=== PATIENT | female | born 1970 | race Caucasian/White ===

== ENCOUNTER → 2017-05-25 | Outpatient (CLI) | payer OTHER ==
[~2017-05-25] MED LIST: LEVO175T3 PO; TOPI25TA99 PO; TOPI50TA16 PO
[2017-05-25 18:45] LABS: URINE APPEARANCE CLEAR (CLEAR); URINE BILIRUBIN NEG (NEG); URINE COLOR YELLOW; URINE NITRITE NEG (NEG); URINE SPECIFIC GRAVITY 1.021 (1.000-1.030); UROBILINOGEN NEG (NEG)
[2017-05-25 18:49] LABS: MANUAL MICROSCOPIC REQUIRED? NO; REVIEW REQ? NO
== END | disposition home or self-care (01) ==
LOC: C.LABSPEC 17:39
PROVIDERS: ATTEND Obstetrics & Gynecology
DX: R10.2 Pelvic and perineal pain (principal); R10.84 Generalized abdominal pain

== ENCOUNTER 2017-11-29 07:38 | Emergency (ER) | payer OTHER ==
[~2017-11-29] VITALS: Ht 162.6 cm; Wt 80.7 kg
[2017-11-29 07:41] VITALS: TEMP 36.7; Ht 162.6 cm; Wt 80.7 kg
[2017-11-29] MEDS ORDERED: LIDO/EPINEPHRINE/SOD BICARB 20 ML VIAL INFIL ONE (08:06)
[2017-11-29] MEDS ORDERED: LIDOCAINE/EPINEPHRINE 1% 20 ML VIAL INFIL STA (08:06)
[2017-11-29] MEDS ORDERED: TOPI50TA25 PO (08:08)
--- NOTE | 2017-11-29 09:15 | EMERGENCY ROOM VISIT NOTE ---
ED Visit Note First contact with patient: 07:50 CHIEF COMPLAINT: Left upper lip foreign body HISTORY OF PRESENT ILLNESS: This 47-year-old female patient presents to the emergency department approximately 1 hour after noticing her lip-ring get lost within her lip while eating a ham sandwich. The patient states she bit into the sandwich, and felt the sandwich snag the piercing. She states she noticed the front of the piercing fall into the skin, and believes the back of the piercing went into the skin as well. She describes the ring as a small, dime instead with a round back. The patient's tetanus vaccination is up-to-date. The patient has been trying to remove the stud, but has been unsuccessful. The bleeding has stopped. Denies weakness or numbness of the lip. The patient rates the pain as minimal and 0/10. The patient denies any other injuries. None REVIEW OF SYSTEMS: A 6 system review of systems was completed with positives and pertinent negatives listed in the HPI. ALLERGIES: None MEDICATIONS: Topamax, Synthroid PMH: Hypothyroidism, migraines SOCIAL HISTORY: The patient lives locally with family. She denies drug, alcohol , tobacco use. This is a 47-year-old white female PHYSICAL EXAM: Vital Signs: Reviewed Nurse's notes, vital signs stable. GENERAL : This is a 47-year-old white female, in no acute distress, well-developed, well -nourished. SKIN: There is a 0.5 cm long laceration on the anterior aspect of the upper lip extending through to the outer skin. On palpation, there is a foreign-body like lesion noted within the piercing. There is no active bleeding. No deep structures such as tendons, bones, or significant blood vessels are seen in the base of the wound. Normal strength and movement of the lip. EMERGENCY DEPARTMENT COURSE: I examined the patient. Verbal consent was obtained to perform the procedure. Using sterile technique the wound was cleansed with Betadine. The area was sterilely draped. 1 ml of 1% buffered lidocaine with epinephrine was used to anesthetize the laceration within the mouth. The laceration was extended with a #11 scalpel to approximately 1 cm. The wound was explored with forceps. Possible foreign body noted, but unable to be retrieved. At this time, I re-palpated the wound and did not note a foreign body. X-ray of the face was performed to rule out foreign body. This was reviewed by myself and radiologist and was negative. Discussed x-ray results with the patient at bedside. The wound was flushed with sterile saline. The intraoral laceration was repaired using 2 simple interrupted 4-0 Vicryl sutures with the wound edges being well approximated. The patient tolerated the procedure well. Hemostasis was achieved. I suspect the foreign body sensation was actually scar tissue located within the hole of the piercing. On examination and attempts to remove this, the scar tissue was broken up, therefore providing relief of the foreign body sensation. I discussed with the patient that I suspect she either swallowed the jewelry or it could be in the sandwich or have fallen out. I did offer to perform an x- ray to look for the foreign body in the abdomen, but patient declines. I discussed with her that she should monitor for any blood in her stools or significant abdominal pain. I suspect the jewelry will pass without incident if she did truly swallow it. The patient was discharged home in good condition. I attest that I have personally reviewed the patient's current medication list. Patient was found to have normal blood pressure on screening and does not require follow-up. Differential diagnosis includes Laceration, retained foreign body in skin, foreign body ingested, infection, and others DIAGNOSIS: laceration of the oral cavity without foreign body Current/Historical Medications Scheduled Levothyroxine Sodium (Levothyroxine Sodium), 175 MCG PO QAM Topiramate (Topamax), 150 MG PO QAM Topiramate (Topiramate), 150 MG PO HS Allergies Coded Allergies: No Known Allergies (Verified , 11/29/17) Vital Signs Date Time Temp Pulse Resp B/P (MAP) Pulse Ox O2 Delivery O2 Flow Rate FiO2 11/29/17 09:27 85 18 131/94 98 Room Air 11/29/17 07:41 36.7 85 18 132/87 98 Room Air Departure Information Impression Primary Impression: Laceration of oral cavity without foreign body Dispostion Home / Self-Care Condition GOOD Referrals No Doctor, Assigned (PCP) Patient Instructions ED Laceration Mouth, My [facility] Additional Instructions You were seen in the ED today for a possible foreign body in your lip. As discussed, I suspect the sensation/"Foreign body" we were feeling was actually scar tissue within the lip related to the piercing. No FB noted on palpation or X-ray. You have received 2 sutures on your inner upper lip. These sutures are dissolvable and WILL NOT need to be removed by a health care provider. Proper wound care is essential for adequate wound healing and infection prevention. You can and clean the wound with salt water mouth rinses. Do not scour over the wound, pat dry with a towel. Do not submerse the wound until the sutures have dissolved. You can use an antibiotic ointment with a dressing over the wound for the next 3-4 days on the outer lip. After this time you may leave the wound dry and open to the air. If crust develops over the wound you can use a Q-tip to apply a 1:1 peroxide:water solution to clean the wound. Look for signs of infection of the wound including: increased pain, swelling, foul discharge, streaking, or increased temperature. If any of these are noticed you should return to the Emergency Department for further assessment and treatment. As with any laceration you may have received nerve damage to the surrounding tissues. This damage may or may not be permanent. You should keep the area covered with sunscreen for the first 6 months to 1 year when at risk for exposure to help minimize scarring. You can also use scar reducing creams or Vitamin E oil to help minimize scarring. For pain control, you can use the following [id number]-hgt-[id number] medicines (if >12 yo): Ibuprofen(Motrin, Advil) may be used for fever or pain. Use 600mg every six hours as needed. Take with food. Avoid using more than 2400mg in a 24 hour period. Do not use 2400mg per day for more than three consecutive days without physician direction. Prolonged inappropriate use can lead to stomach upset or ulcers. (AND/OR) Acetaminophen(Tylenol) may be used for fever or pain. Use 1000mg every six hours as needed. Avoid using more than 3000mg in a 24 hour period. Return to the emergency department if your symptoms worsen despite treatment course outlined above. Problem Qualifiers Primary Impression: Laceration of oral cavity without foreign body Encounter type: initial encounter Qualified Codes: S01.512A - Laceration without foreign body of oral cavity, initial encounter
--- NOTE | 2017-11-29 09:24 | DIAGNOSTIC IMAGING REPORT ---
FACIAL BONES 3 VIEWS CLINICAL HISTORY: The patient lost a lip piercing. FINDINGS: 3 views of the facial bones are obtained. There is no radiographic evidence of facial bone fracture. The bony orbits appear intact. The paranasal sinuses are clear as visualized. A right supraorbital piercing is noted. No lip piercing is seen. The mastoid air cells appear pneumatized. The visualized calvarium appears intact. IMPRESSION: 1. The right supraorbital piercing is noted. 2. No lip piercing is seen. 3. There is no radiographic evidence of facial bone fracture. Electronically signed by: Fredi Reyes M.D. 11/29/2017 9:23 AM Dictated Date/Time: 11/29/2017 9:21 AM
[2017-11-29 09:27] VITALS: BP 131/94; PULSE 85; O2SAT 98
== END 2017-11-29 09:29 | disposition home or self-care (01) ==
LOC: C.EDB 07:40 → C.EDA 09:29
DX: S01.512A Laceration without foreign body of oral cavity, initial encounter (principal); W26.8XXA Contact with other sharp object(s), not elsewhere classified, initial encounter; E03.9 Hypothyroidism, unspecified

== ENCOUNTER → 2018-04-23 | Outpatient (CLI) | payer OTHER ==
[~2018-04-23] MED LIST changes: +ACET-1256 PO; -TOPI25TA99 PO; +TOPI50TA25 PO
--- NOTE | 2018-04-26 15:42 | MAMMOGRAPHY REPORT ---
BILATERAL DIGITAL SCREENING MAMMOGRAM TOMOSYNTHESIS WITH CAD: 04/23/2018 CLINICAL HISTORY: Routine screening. The patient has no current complaints. TECHNIQUE: The study was acquired using full field digital technology and interpreted from soft copy. Breast tomosynthesis in addition to standard 2D mammography was performed. Current study was also ev aluated with a Computer Aided Detection (CAD) system. COMPARISON: Comparison is made to exams dated: 12/31/2012 ultrasound and 12/[facility]. BREAST COMPOSITION: There are scattered areas of fibroglandular density in both breasts. FINDINGS: No suspicious masses, calcifications, or areas of architectural distortion are noted in either breast . There has been no significant interval change compared to prior exams. Asymmetry in the left super ior breast middle depth on the MLO view has the appearance of normal fibroglandular tissue on the marleen osynthesis images. IMPRESSION: ACR BI-RADS CATEGORY 2: BENIGN There is no mammographic evidence of malignancy. A 1 year screening mammogram is recommended.( 019) The patient will receive written notification of the results. Some breast cancers are not detected with mammography. A negative mammographic report should not ha y biopsy if a clinically suggestive mass is present. Antonia Pérez M.D. ah/:04/23/2018 15:48:53 Charge Entry: RT Estella(Emigdio)(M), [facility] letter sent: Normal 1/2 BI-RADS Code: ACR BI-RADS Category 2: Benign
== END | disposition home or self-care (01) ==
LOC: C.MAMM 13:59
PROVIDERS: ATTEND Nurse Practitioner
DX: Z12.31 Encounter for screening mammogram for malignant neoplasm of breast (principal)

== ENCOUNTER 2022-09-19 12:16 | Observation (INO) ==
[2022-09-19] MEDS ORDERED: OPTIRAY 320 500ml IV ONE (12:22)
[2022-09-19] MEDS ORDERED: LABETALOL HCL IV 5 MG/ML 20ML IV STA (12:37)
[2022-09-19] MEDS ORDERED: LABETALOL HCL IV 5 MG/ML 20ML IV ONE (12:38)
--- NOTE | 2022-09-19 12:41 | Emergency Department Note ---
Impression & Plan Stroke-like symptoms, Chest pain, Headache, Syncope ED Provider Note NAME: AGUEDA ERICKSON AGE: 51 SEX: F : 1970 ARRIVES VIA: Ambulance INFORMANT: Patient, EMS, the patient's [facility] ED PROVIDER(S): Mango Hall DO CHIEF COMPLAINT: Strokelike symptoms HPI: The patient is a 51-year-old female who presented to the emergency department for an evaluation after having strokelike symptoms. The patient had a syncopal episode at approximately 10:45 AM. She states that after the syncopal episode she was developing chest pain. She states that she has had a history of chest pain before this is not new for her. She states that she has no chest pain at this time. She denies having any shortness of breath. She states that when she had her syncopal episode she does not think that she struck her head. At approximately 1145 she started to develop dysarthria. She also has a headache that is behind her right eye. She also complains of nausea but no vomiting. She has no history of TIA. She has no history of black or bloody bowel moods. The patient's family called 911 at 1145 when she developed the neurologic symptoms. She has a history of A. fib. She does not take any blood thinners. She states that she is having difficulty ambulating and reportedly she needed help getting onto the ambulance gurney. ROS: See above HPI for pertinent positives & negatives. A total of 10 systems reviewed and were otherwise negative. PAST MEDICAL HISTORY: See Below PAST SURGICAL HISTORY: See Below FAMILY HISTORY: See Below SOCIAL HISTORY: See Below HOME MEDICATIONS: See Below ALLERGIES: See Below VITALS: See Below PHYSICAL EXAMINATION: GENERAL: The patient is awake and alert. The patient is somewhat anxious appearing. EYES: The conjunctivae are clear. The pupils are round and reactive. EARS, NOSE, MOUTH AND THROAT: The nose is without any evidence of any deformity. Mucous membranes are moist. Tongue is midline. NECK: The neck is nontender and supple. RESPIRATORY: Normal respiratory effort is noted there is no evidence of wheezing rhonchi or rales CARDIOVASCULAR: Regular rate and rhythm noted there no murmurs rubs or gallops normal S1 normal S2. GASTROINTESTINAL: The abdomen is soft. Abdomen is nontender. MUSCULOSKELETAL/EXTREMITIES: There is no evidence of gross deformity full range of motion is noted in the hips and shoulders. SKIN: There is no obvious evidence of any rash. There are no petechiae, pallor or cyanosis noted. NEUROLOGIC: Patient has very significant dysarthria. She is able to very slowly and pressured form words. When she does form words that are understandable. The patient is able to hold each leg off the bed for approximately 5 seconds. Slat Basket Top Maker strength was symmetric but diminished bilaterally. There is no facial droop noted. MEDICAL DECISION MAKING: The patient is a 51-year-old female who presented to the emergency department for strokelike symptoms. She was made a stroke alert prior to arrival. The patient was having significant dysarthria and also had trouble ambulating. The patient also had a syncopal episode and developed chest pain after the syncopal episode. Because of the confusion and not straightforward matter of her stroke presentation she was still made a stroke alert and I consulted the [facility] telestroke neurologist but we waited until the CT of the chest was resulted to ensure we are not dealing with any sort of dissection that would be causing the patient's strokelike symptoms as well as syncope and chest pain. Ultimately the patient was reevaluated multiple times. On subsequent reevaluation her NIH stroke score was 0. Her speech was clear and she was able to ambulate. She still had some of the headache. At this time this still could represent a TIA but the patient was treated with a migraine cocktail. She was reevaluated multiple times. I discussed her condition with the on-call [facility] hospitalist. They have agreed to evaluate the patient in the emergency department for further management and disposition. Triage Nursing notes reviewed. Prior medical records reviewed Vital Signs: reviewed and remarkable for elevated blood pressure and tachycardia. Differential diagnosis: Infection, dehydration, metabolic abnormality, hypo/hyperglycemia, electrolyte disturbance, anemia, hypoxia, cardiac sources, intracerebral event, toxicologic, neurologic, as well as other pathologies. ER treatment provided: See below Diagnostics interpreted by me: ECG: EKG was obtained in the emergency department. My interpretation is sinus tachycardia 109 bpm. There is no ectopy. Low voltage was noted throughout. This was compared to a tracing from June 10, 2016. No changes were noted Cardiac Monitoring: An order was placed for continuous cardiac monitoring. The monitor shows a rate of 110 bpm with sinus rhythm. Laboratory studies: As stated above and show below. Imaging studies: See below Consultation(s): I discussed this case with Dr. Thurman who is on-call for [facility] telestroke. I discussed this case with Yoselin who is on for the [facility] hospitalist group. ED COURSE: Procedures: none Critical Care: I have personally spent greater than 40 minutes of critical care time in the direct management of this patient. This includes bedside care, interpretation of diagnostic studies, and testing, discussion with consultants, patient, and family members, and other required patient management activities. This 40 minutes is in excess of all separately billable procedures. Past Med/Surg History Medical History No significant active problems No significant family history No significant medical problems No significant past medical history Surgical History No significant past surgical history Social History Smoking Status: Never smoker Preferred Language: Czech Feels Safe at Home: Yes Allergies Allergies Allergy/AdvReac Type Severity Reaction Status Date / Time No Known Allergies Allergy Verified 07/24/21 15:28 Home Meds Home Medications Medication Instructions Recorded Confirmed acetaminophen 500 mg tablet 1,000 mg PO DAILY PRN Pain 02/11/19 07/24/21 levothyroxine 125 mcg tablet 125 mcg PO DAILY 02/11/19 07/24/21 Previous Rx's Medication Instructions Recorded meclizine 12.5 mg tablet 12.5 mg PO TID PRN dizziness #20 02/11/19 tabs ondansetron 4 mg disintegrating 4 mg PO Q8H PRN nausea and 02/11/19 tablet vomiting #30 tabs sodium sul 1.479 gram-potas ch See Rx Instructions .Route 11/07/21 0.188 gram-magnes sul 0.225 gram .COMPLEX #24 tabs tablet (Sutab) Results & Data (ED) Vital Signs Vital Signs - 24 hr 09/19/22 12:30 09/19/22 12:30 09/19/22 13:00 Temperature 36.8 C Temperature Source Oral Pulse Rate 110 H Pulse Rate [Right Finger] 91 H Pulse Rate from SpO2 Sensor Pulse Rhythm Regular Pulse Rhythm [Right Finger] Regular Pulse Strength Normal Pulse Strength [Right Finger] Normal Respiratory Rate 18 21 Respiratory Effort / Characteristics Non-Labored Non-Labored Spontaneous Respiratory Depth Normal Normal Respiratory Pattern Regular Regular Blood Pressure 151/100 H Blood Pressure [Right Arm] 146/100 H Blood Pressure Mean 117 Blood Pressure Mean [Right Arm] 115 Blood Pressure Position Lying Blood Pressure Position [Right Arm] Lying Pulse Oximetry 97 96 Oxygen Delivery Method Room Air Room Air Room Air Sepsis Recent Fever Within 48 Hours No Sepsis New/Unexplained Change in Mental Status No Sepsis Action Taken by Nursing No Action Required 09/19/22 12:36 09/19/22 12:37 09/19/22 12:40 Temperature Temperature Source Pulse Rate 113 H Pulse Rate [Right Finger] Pulse Rate from SpO2 Sensor 115 H Pulse Rhythm Pulse Rhythm [Right Finger] Pulse Strength Pulse Strength [Right Finger] Respiratory Rate 14 Respiratory Effort / Characteristics Respiratory Depth Respiratory Pattern Blood Pressure 182/106 H 148/102 H Blood Pressure [Right Arm] Blood Pressure Mean 131 117 Blood Pressure Mean [Right Arm] Blood Pressure Position Blood Pressure Position [Right Arm] Pulse Oximetry 96 Oxygen Delivery Method Sepsis Recent Fever Within 48 Hours Sepsis New/Unexplained Change in Mental Status Sepsis Action Taken by Nursing 09/19/22 12:40 09/19/22 12:45 09/19/22 12:45 Temperature Temperature Source Pulse Rate 116 H 106 H Pulse Rate [Right Finger] Pulse Rate from SpO2 Sensor 115 H 106 H Pulse Rhythm Pulse Rhythm [Right Finger] Pulse Strength Pulse Strength [Right Finger] Respiratory Rate 29 H 24 Respiratory Effort / Characteristics Respiratory Depth Respiratory Pattern Blood Pressure 151/100 H Blood Pressure [Right Arm] Blood Pressure Mean 117 Blood Pressure Mean [Right Arm] Blood Pressure Position Blood Pressure Position [Right Arm] Pulse Oximetry 96 98 Oxygen Delivery Method Sepsis Recent Fever Within 48 Hours Sepsis New/Unexplained Change in Mental Status Sepsis Action Taken by Nursing 09/19/22 12:50 09/19/22 13:00 09/19/22 13:00 Temperature Temperature Source Pulse Rate 104 H 110 H Pulse Rate [Right Finger] Pulse Rate from SpO2 Sensor 103 H 108 H Pulse Rhythm Pulse Rhythm [Right Finger] Pulse Strength Pulse Strength [Right Finger] Respiratory Rate 20 25 H Respiratory Effort / Characteristics Respiratory Depth Respiratory Pattern Blood Pressure 146/100 H Blood Pressure [Right Arm] Blood Pressure Mean 115 Blood Pressure Mean [Right Arm] Blood Pressure Position Blood Pressure Position [Right Arm] Pulse Oximetry 96 94 Oxygen Delivery Method Sepsis Recent Fever Within 48 Hours Sepsis New/Unexplained Change in Mental Status Sepsis Action Taken by Snf Medications Current Medication List: was personally reviewed by me Laboratory Data Attestation: I reviewed the patient's lab results. Result diagrams: 09/19/22 12:36 09/19/22 12:36 Lab Results 09/19/22 09/19/22 09/19/22 Range/Units 12:36 12:36 12:36 WBC 11.29 H (4.8-10.8) K/ul RBC 4.46 (3.93-5.22) M/uL Hgb 13.7 (12.0-16.0) g/dl Hct 39.7 (34.1-44.9) % MCV 89.0 (80.0-100.0) fL MCH 30.7 (25.0-34.0) pg MCHC 34.5 (32.0-36.0) g/dL RDW Std Deviation 42.5 (36.4-46.3) fL RDW Coeff of Sherrie 12.9 (11.5-14.5) % Plt Count 378 (130-400) K/uL MPV 9.7 (9.4-12.3) fL Immature Gran % (Auto) 0.4 % Neut % (Auto) 52.1 % Lymph % (Auto) 38.4 % [place]ades % (Auto) 5.9 % Eos % (Auto) 2.4 % Baso % (Auto) 0.8 % Neut # (Auto) 5.88 (1.4-6.5) K/uL Lymph # (Auto) 4.34 H (1.2-3.4) K/uL [place] # (Auto) 0.67 (0.24-0.82) K/uL Eos # (Auto) 0.27 (0-0.50) K/uL Baso # (Auto) 0.09 (0-0.2) K/uL Immature Gran # (Auto) 0.04 H (0.00-0.02) K/uL PT 10.8 (9.0-12.0) Seconds INR 1.0 (0.9-1.1) APTT 26.5 (21.0-31.0) Seconds PTT Ratio 1.0 Sodium 139 (136-145) mmol/L Potassium 3.4 L (3.5-5.1) mmol/L Chloride 106 (98-107) mmol/L Carbon Dioxide 27 (21-32) mmol/L Anion Gap 6 (3-11) BUN 15 (6-23) mg/dl Creatinine 1.55 H (0.6-1.2) mg/dl Est Cr Clr Drug Dosing 47.4 ml/min Est GFR ( Amer) 44.8 ml/min Est GFR (Non-Af Amer) 38.6 ml/min BUN/Creatinine Ratio 9.7 L (10-20) Glucose 99 (70-99(Fasting)) mg/dl POC Glucose (70-99) mg/dl Calcium 8.0 L (8.5-10.1) mg/dl Magnesium 2.1 (1.7-2.4) mg/dl Total Bilirubin 0.3 (0.2-1.0) mg/dl AST 18 (13-39) U/L ALT 14 (7-52) U/L Alkaline Phosphatase 75 (34-104) U/L Troponin I High Sens 2.6 (0-14) pg/ml Total Protein 5.4 L (6.0-8.3) gm/dl Albumin 3.4 (3.4-5.0) gm/dl Globulin 2.0 L (2.5-4.0) gm/dl Albumin/Globulin Ratio 1.7 (0.9-2) HCG, Quant mIU/ml 09/19/22 09/19/22 Range/Units 12:36 12:37 WBC (4.8-10.8) K/ul RBC (3.93-5.22) M/uL Hgb (12.0-16.0) g/dl Hct (34.1-44.9) % MCV (80.0-100.0) fL MCH (25.0-34.0) pg MCHC (32.0-36.0) g/dL RDW Std Deviation (36.4-46.3) fL RDW Coeff of Sherrie (11.5-14.5) % Plt Count (130-400) K/uL MPV (9.4-12.3) fL Immature Gran % (Auto) % Neut % (Auto) % Lymph % (Auto) % [place]ades % (Auto) % Eos % (Auto) % Baso % (Auto) % Neut # (Auto) (1.4-6.5) K/uL Lymph # (Auto) (1.2-3.4) K/uL [place]ades # (Auto) (0.24-0.82) K/uL Eos # (Auto) (0-0.50) K/uL Baso # (Auto) (0-0.2) K/uL Immature Gran # (Auto) (0.00-0.02) K/uL PT (9.0-12.0) Seconds INR (0.9-1.1) APTT (21.0-31.0) Seconds PTT Ratio Sodium (136-145) mmol/L Potassium (3.5-5.1) mmol/L Chloride (98-107) mmol/L Carbon Dioxide (21-32) mmol/L Anion Gap (3-11) BUN (6-23) mg/dl Creatinine (0.6-1.2) mg/dl Est Cr Clr Drug Dosing ml/min Est GFR ( Amer) ml/min Est GFR (Non-Af Amer) ml/min BUN/Creatinine Ratio (10-20) Glucose (70-99(Fasting)) mg/dl POC Glucose 95 (70-99) mg/dl Calcium (8.5-10.1) mg/dl Magnesium (1.7-2.4) mg/dl Total Bilirubin (0.2-1.0) mg/dl AST (13-39) U/L ALT (7-52) U/L Alkaline Phosphatase (34-104) U/L Troponin I High Sens (0-14) pg/ml Total Protein (6.0-8.3) gm/dl Albumin (3.4-5.0) gm/dl Globulin (2.5-4.0) gm/dl Albumin/Globulin Ratio (0.9-2) HCG, Quant 3 mIU/ml Administered Medications Discontinued Medications Aspirin (Aspirin Chew 324 Mg) 324 mg PO NOW STA Stop: 09/19/22 13:23 Last Admin: 09/19/22 13:40 Dose: 324 mg Documented By: AP Promethazine HCl (Phenergan) 12.5 mg in 50.5 mls @ 202 mls/hr IV NOW STA Stop: 09/19/22 13:16 Last Admin: 09/19/22 13:40 Dose: 202 mls/hr Documented By: KIP Ioversol (Optiray 320 500ml) 106 ml IV ONCE ONE Stop: 09/19/22 12:23 Last Admin: 09/19/22 12:31 Dose: 106 ml Documented By: LISA Labetalol HCl (Labetalol Hcl Iv 5 Mg/Ml 20ml) 10 mg IV NOW STA Stop: 09/19/22 12:38 Last Admin: 09/19/22 13:37 Dose: Not Given Documented By: KIP Labetalol HCl (Labetalol Hcl Iv 5 Mg/Ml 20ml) Confirm Administered Dose 5 mg IV .STK-MED ONE Stop: 09/19/22 12:39 Last Admin: 09/19/22 13:37 Dose: Not Given Documented By: KIP Sodium Chloride (Sodium Chloride 0.9% 10ml Flush) 20 ml IV NOW STA Stop: 09/19/22 12:44 Last Admin: 09/19/22 13:37 Dose: Not Given Documented By: KIP Imaging Data Radiologist's Impression: Chest CTA 09/19/22 12:13 CT ANGIOGRAPHY OF THE CHEST DISSECTION PROTOCOL CLINICAL HISTORY: Chest pain. Evaluate for thoracic aortic dissection. COMPARISON STUDY: Chest radiograph June 10, 2016. TECHNIQUE: Before and following the IV administration of Optiray, helical axial images of the chest were obtained. Maximal intensity projections and sagittal and coronal reformats were viewed on an independent 3D workstation. IV contrast was administered without complication. Automated exposure control was utilized for the study. A dose lowering technique was utilized adhering to the principles of ALARA. FINDINGS: The caliber of the thoracic aorta is normal. The thoracic aorta is suboptimally assessed on this exam due to motion artifact. However, there is no intramural hematoma or thoracic aortic dissection. There is no pericardial effusion. Size of the heart is within normal limits. No central or lobar pulmonary emboli are present. Central airways are patent. There is no pneumothorax or pleural effusion. No thoracic lymphadenopathy is present. A 3 mm right middle lobe nodule is unchanged since abdominal CT of June 11, 2016. This is benign. Scattered groundglass opacities within the lungs favor atelectasis. Slight concavity of the superior endplate of T9 is likely chronic. Visualized portions of the upper abdomen are unremarkable. IMPRESSION: 1. No thoracic aortic dissection. 2. No acute intrathoracic findings. ACT 112: Negative or not required by law. Electronically signed by: Leonel Monge M.D. 09/19/2022 1:19 PM Chest X-Ray 09/19/22 12:13 XR chest 1V portable HISTORY: Atypical chest pain. neuro deficit, acute stroke suspected COMPARISON: Chest 06/10/2016. FINDINGS: Small linear scarlike density within the left lung base, unchanged. Otherwise, the lungs are clear. Cardiac silhouette is normal in size. No pleural effusions. No pneumothorax. Mild elevation the right hemidiaphragm. IMPRESSION: No acute process. ACT 112: Negative or not required by law. Electronically signed by: Cole Gurrola M.D. 09/19/2022 12:[address] 09/19/22 12:[address] DOSE: HISTORY: neuro deficit, acute stroke suspected TECHNIQUE: Multiaxial CT images of the head were performed without the use of intravenous contrast. Automated exposure control was utilized for this study. A dose lowering technique was utilized adhering to the principles of ALARA. Comparison: None. Findings: The paranasal sinuses and mastoid air cells are clear. The calvarium and skull base are intact. The ventricles and sulci are within normal limits. There is no mass, hematoma, midline shift, or acute infarct. Impression: No acute intracranial abnormality. ACT 112: Negative or not required by law. Electronically signed by: Cole Gurrola M.D. 09/19/2022 12:40 PM Head CTA 09/19/22 12:13 HEAD & NECK CTA HISTORY: neuro deficit, acute stroke suspected TECHNIQUE: Multiaxial CT images of the head were performed following the intravenous administration of contrast to evaluate the major cerebral vessels. Multiaxial CT images of the neck were also performed following the intravenous administration of contrast to evaluate the major cervical vessels. Maximum intensity projection images were also obtained. A dose lowering technique was utilized adhering to the principles of ALARA. COMPARISON: Head CT 09/19/2022. FINDINGS: There is no mass, hematoma, midline shift, or acute infarct. Visualized intracranial internal carotid arteries, distal vertebral arteries, and basilar artery are widely patent. There is no significant stenosis, occlusion, or aneurysm seen within the bilateral ACAs, MCAs, or library director. The major dural venous sinuses are patent. The aortic arch and proximal great vessels are widely patent. There is no significant stenosis, occlusion, or dissection identified within the bilateral common carotid, internal carotid, or vertebral arteries. IMPRESSION: 1. No significant stenosis, occlusion, or aneurysm within the [place] of No. 2. No significant stenosis, occlusion, or dissection identified within the carotid or vertebral arteries. ACT 112: Negative or not required by law. Electronically signed by: Cole Gurrola M.D. 09/19/2022 12:47 PM Neck CTA 09/19/22 12:13 HEAD & NECK CTA HISTORY: neuro deficit, acute stroke suspected TECHNIQUE: Multiaxial CT images of the head were performed following the intravenous administration of contrast to evaluate the major cerebral vessels. Multiaxial CT images of the neck were also performed following the intravenous administration of contrast to evaluate the major cervical vessels. Maximum intensity projection images were also obtained. A dose lowering technique was utilized adhering to the principles of ALARA. COMPARISON: Head CT 09/19/2022. FINDINGS: There is no mass, hematoma, midline shift, or acute infarct. Visualized intracranial internal carotid arteries, distal vertebral arteries, and basilar artery are widely patent. There is no significant stenosis, occlusion, or ane urysm seen within the bilateral ACAs, MCAs, or library director. The major dural venous sinuses are patent. The aortic arch and proximal great vessels are widely patent. There is no si gnificant stenosis, occlusion, or dissection identified within the bilateral common carotid, internal carotid, or vertebral arteries. IMPRESSION: 1. No significant stenosis, occlusion, or aneurysm within the [place] of No. 2. No significant stenosis, occlusion, or dissection identified within the carotid or vertebral arteries. ACT 112: Negative or not required by law. Electronically signed by: Cole Gurrola M.D. 09/19/2022 12:47 PM Discharge Plan Visit Data Chief Complaint: Stroke Alert ED Provider: Mango Hall Discharge Problem: Stroke-like symptoms, Chest pain, Headache, Syncope Patient Disposition: Being Evaluated by Hospitalist Forms Stand Alone Forms: [facility] Prescriptions Prescriptions: No Action Sutab 1.479-0.188- 0.225 gram tablet See Rx Instructions .Route .COMPLEX Qty: 24 0RF Rx Instructions: TAKE DIRECTED PER SPLIT DOSE INSTRUCTIONS; BIN: [id number] PCN: CN GROUP: [id number] acetaminophen 500 mg Tablet 1,000 mg PO DAILY PRN (Reason: Pain) levothyroxine 125 mcg tablet 125 mcg PO DAILY meclizine 12.5 mg tablet 12.5 mg PO TID PRN (Reason: dizziness) Qty: 20 0RF ondansetron 4 mg tablet,disintegrating 4 mg PO Q8H PRN (Reason: nausea and vomiting) Qty: 30 0RF Referrals Referrals: PCP,NO [Primary Care Provider] -
--- NOTE | 2022-09-19 12:42 | CT Scan Report ---
HEAD CT NONCONTRAST CT DOSE: HISTORY: neuro deficit, acute stroke suspected TECHNIQUE: Multiaxial CT images of the head were performed without the use of intravenous contrast. A utomated exposure control was utilized for this study. A dose lowering technique was utilized adheri ng to the principles of ALARA. Comparison: None. Findings: The paranasal sinuses and mastoid air cells are clear. The calvarium and skull base are int act. The ventricles and sulci are within normal limits. There is no mass, hematoma, midline shift, or acute infarct. Impression: No acute intracranial abnormality. ACT 112: Negative or not required by law. Electronically signed by: Cole Gurrola M.D. 09/19/2022 12:40 PM
[2022-09-19] MEDS ORDERED: STAT IV STA (12:43)
[2022-09-19] MEDS ORDERED: SODIUM CHLORIDE 0.9% 10ML FLUSH IV STA (12:43)
[2022-09-19] MEDS ORDERED: No Aspirin within 24hrs of THROMBOLYTIC-Stroke PO SCH (12:45)
--- NOTE | 2022-09-19 12:48 | CT Scan Report ---
HEAD & NECK CTA HISTORY: neuro deficit, acute stroke suspected TECHNIQUE: Multiaxial CT images of the head were performed following the intravenous administration o f contrast to evaluate the major cerebral vessels. Multiaxial CT images of the neck were also perform ed following the intravenous administration of contrast to evaluate the major cervical vessels. Maxim um intensity projection images were also obtained. A dose lowering technique was utilized adhering to the principles of ALARA. COMPARISON: Head CT 09/19/2022. FINDINGS: There is no mass, hematoma, midline shift, or acute infarct. Visualized intracranial internal carotid arteries, distal vertebral arteries, and basilar artery are widely patent. There is no significant s tenosis, occlusion, or aneurysm seen within the bilateral ACAs, MCAs, or corporate aircraft mechanic. The major dural venous sinuses are patent. The aortic arch and proximal great vessels are widely patent. There is no significant stenosis, occ lusion, or dissection identified within the bilateral common carotid, internal carotid, or vertebral arteries. IMPRESSION: 1. No significant stenosis, occlusion, or aneurysm within the [place] of No. 2. No significant stenosis, occlusion, or dissection identified within the carotid or vertebral arter ies. ACT 112: Negative or not required by law. Electronically signed by: Cole Gurrola M.D. 09/19/2022 12:47 PM
--- NOTE | 2022-09-19 12:48 | CT Scan Report ---
HEAD & NECK CTA HISTORY: neuro deficit, acute stroke suspected TECHNIQUE: Multiaxial CT images of the head were performed following the intravenous administration o f contrast to evaluate the major cerebral vessels. Multiaxial CT images of the neck were also perform ed following the intravenous administration of contrast to evaluate the major cervical vessels. Maxim um intensity projection images were also obtained. A dose lowering technique was utilized adhering to the principles of ALARA. COMPARISON: Head CT 09/19/2022. FINDINGS: There is no mass, hematoma, midline shift, or acute infarct. Visualized intracranial internal carotid arteries, distal vertebral arteries, and basilar artery are widely patent. There is no significant s tenosis, occlusion, or aneurysm seen within the bilateral ACAs, MCAs, or polishing machine tender. The major dural venous sinuses are patent. The aortic arch and proximal great vessels are widely patent. There is no significant stenosis, occ lusion, or dissection identified within the bilateral common carotid, internal carotid, or vertebral arteries. IMPRESSION: 1. No significant stenosis, occlusion, or aneurysm within the [place] of No. 2. No significant stenosis, occlusion, or dissection identified within the carotid or vertebral arter ies. ACT 112: Negative or not required by law. Electronically signed by: Cole Gurrola M.D. 09/19/2022 12:47 PM
--- NOTE | 2022-09-19 12:50 | XRay Report ---
XR chest 1V portable HISTORY: Atypical chest pain. neuro deficit, acute stroke suspected COMPARISON: Chest 06/10/2016. FINDINGS: Small linear scarlike density within the left lung base, unchanged. Otherwise, the lungs ar e clear. Cardiac silhouette is normal in size. No pleural effusions. No pneumothorax. Mild elevation the right hemidiaphragm. IMPRESSION: No acute process. ACT 112: Negative or not required by law. Electronically signed by: Cole Gurrola M.D. 09/19/2022 12:48 PM
[2022-09-19] MEDS ORDERED: TENECTEPLASE 23 MG in SYRINGE 0 ML IV ONE (12:53)
[2022-09-19 12:56] LABS: Basophils # (auto) 0.09 K/uL (0-0.2); Basophils % (auto) 0.8 %; Eosinophils # (auto) 0.27 K/uL (0-0.50); Eosinophils % (auto) 2.4 %; Hematocrit (blood only) 39.7 % (34.1-44.9); Hemoglobin 13.7 g/dl (12.0-16.0); Immature Granulocytes # (auto) 0.04 K/uL (0.00-0.02); Immature Granulocytes % (auto) 0.4 %; Lymphocytes # (auto) 4.34 K/uL (1.2-3.4); Lymphocytes % (auto) 38.4 %; Mean Corpuscular Hemoglobin 30.7 pg (25.0-34.0); Mean Corpuscular Hgb Conc 34.5 g/dL (32.0-36.0); Mean Platelet Volume 9.7 fL (9.4-12.3); Monocytes # (auto) 0.67 K/uL (0.24-0.82); Monocytes % (auto) 5.9 %; Neutrophils # (auto) 5.88 K/uL (1.4-6.5); Neutrophils % (auto) 52.1 %; Platelet Count 378 K/uL (130-400); RDW Coefficient of Variation 12.9 % (11.5-14.5); RDW Standard Deviation 42.5 fL (36.4-46.3); Red Blood Count 4.46 M/uL (3.93-5.22); White Blood Count 11.29 K/ul (4.8-10.8)
[2022-09-19] MEDS ORDERED: PROMETHAZINE 12.5 MG/50.5 ML BAG IV STA (13:02)
[2022-09-19 13:07] LABS: Partial Thromboplastin Time 26.5 Seconds (21.0-31.0); Prothrombin Time 10.8 Seconds (9.0-12.0)
--- NOTE | 2022-09-19 13:21 | CT Scan Report ---
CT ANGIOGRAPHY OF THE CHEST DISSECTION PROTOCOL CLINICAL HISTORY: Chest pain. Evaluate for thoracic aortic dissection. COMPARISON STUDY: Chest radiograph June 10, 2016. TECHNIQUE: Before and following the IV administration of Optiray, helical axial images of the chest w ere obtained. Maximal intensity projections and sagittal and coronal reformats were viewed on an [facility] 3D workstation. IV contrast was administered without complication. Automated exposure cont rol was utilized for the study. A dose lowering technique was utilized adhering to the principles of ALARA. FINDINGS: The caliber of the thoracic aorta is normal. The thoracic aorta is suboptimally assessed o n this exam due to motion artifact. However, there is no intramural hematoma or thoracic aortic disse ction. There is no pericardial effusion. Size of the heart is within normal limits. No central or lob ar pulmonary emboli are present. Central airways are patent. There is no pneumothorax or pleural effu kirk. No thoracic lymphadenopathy is present. A 3 mm right middle lobe nodule is unchanged since abdo agnes CT of June 11, 2016. This is benign. Scattered groundglass opacities within the lungs favo r atelectasis. Slight concavity of the superior endplate of T9 is likely chronic. Visualized portions of the upper abdomen are unremarkable. IMPRESSION: 1. No thoracic aortic dissection. 2. No acute intrathoracic findings. ACT 112: Negative or not required by law. Electronically signed by: Leonel Monge M.D. 09/19/2022 1:19 PM
[2022-09-19] MEDS ORDERED: ASPIRIN CHEW 324 MG PO STA (13:22)
[2022-09-19 13:24] LABS: Albumin Globulin Ratio 1.7 (0.9-2); Albumin Level 3.4 gm/dl (3.4-5.0); BUN Creatinine Ratio 9.7 (10-20); Bilirubin,Total 0.3 mg/dl (0.2-1.0); Creatinine Clr Calc Pharmacy 47.4 ml/min; Est GFR (African American) 44.8 ml/min; Est GFR (Non-African American) 38.6 ml/min; Magnesium 2.1 mg/dl (1.7-2.4); Potassium 3.4 mmol/L (3.5-5.1); Total Protein 5.4 gm/dl (6.0-8.3)
[2022-09-19 13:25] LABS: Troponin I High Sensitivity 2.6 pg/ml (0-14)
[2022-09-19] MEDS ORDERED: SODIUM CHLORIDE 0.9% 1000ML 500 ML IV ONE (13:51)
[2022-09-19 13:56] LABS: Appearance Urine Clear (Clear); Bacteria Urine Automated Negative (Negative); Bilirubin Urine Negative (Negative); Blood Urine Negative (Negative); Cast Urine Automated 0 /lpf (0-5); Color Urine Yellow; Glucose Urine UA Negative (Negative); Ketones Urine Negative (Negative); Leukocyte Esterase Urine 1+ (Negative); Nitrite Urine Negative (Negative); Protein Urine Negative (Negative); RBC Urine Automated 0-4 /hpf (0-4); Specific Gravity Urine 1.017 (1.000-1.030); Urobilinogen Urine Negative (Negative); pH Urine 7.5 (4.5-7.5)
--- NOTE | 2022-09-19 14:36 | History & Physical Report ---
Date of Service September 19, 2022 Assessment & Plan (1) Stroke-like symptoms: Plan: Patient is 51-year-old female with PMH anxiety, depression, migraine headache, history of goiter s/p thyroidectomy, postsurgical hypothyroidism presented to ER with complaint of speech changes, LEVY, near syncope, dizziness. Dizziness started around 10:00AM and near syncope episode was around 10:45AM. Patient states did not have complete LOC. DDx: TIA, CVA, complex migraine, vertigo, vasovagal syncope, orthostatic hypotension CT Head: No acute intracranial abnormality. CTA Head and Neck: 1. No significant stenosis, occlusion, or aneurysm within the [place] of No. 2. No significant stenosis, occlusion, or dissection identified within the carotid or vertebral arteries. Since being in ER patient has decreased headache, speech difficulty has resolved and has not had any further speech changes. Tele Stroke evaluation with [facility] - Dr. Thurman. Not candidate for TNK with resolution of dysarthria. Recommended aspirin and stroke work up. Tele to monitor for arrhythmias TSH, Tox screen pending Lipid panel, A1c in am MRI brain Echo with bubble study PT/OT consult In ER given aspirin 324mg Start aspirin daily Neurology consult DIZZINESS Likely vertigo In ER was given Phenergan orthostatic vitals Meclizine prn PT eval for Coreen maneuver (2) Headache: (3) Chronic migraine: Plan: History Chronic Migraine Today onset right sided LEVY with photophobia and above stroke like symptoms. Possible complex migraine While in ER with decreased LEVY. Given dose of Tylenol Monitor Previously followed with [facility] neurology. Was to consider starting Emgality however never started it (4) Chest pain: Plan: onset of anterior central sharp chest pain that was nonradiating No CP currently or while in ER EKG: sinus tachycardia, nonspecific T wave abnormality Initial troponin negative CTA Chest: 1. No thoracic aortic dissection. 2. No acute intrathoracic findings Repeat EKG in am Will trend troponin Echo Lipid panel in am (5) Elevated blood pressure reading: Plan: Initial BP in ER 151/100. Improved to 150/90 without intervention Monitor (6) DALIA (acute kidney injury): Plan: Cr: 1.5. Baseline Cr: 1.0 Likely secondary to dehydration In ER given 1L NSS IVF Monitor renal functions, avoid nephrotoxic agents when possible (7) Hypokalemia: Plan: K: 3.4. Magnesium: 2.1 Replace and monitor (8) Post-surgical hypothyroidism: Plan: History goiter s/p thyroidectomy TSH pending Continue levothyroxine (9) Anxiety and depression: Plan: Not currently on medication Was to follow up with psychiatry however has not seen yet DVT Prophylaxis SCDs Full Code as per discussion with pt Follows with Destinee Meza for routine care Pt was seen and care coordinated with Dr Gray. See addendum History of Present Illness Chief Complaint: Speech changes Primary Care Provider: Destinee Meza PA-C Patient is 51-year-old female with PMH anxiety, depression, migraine headache, history of goiter s/p thyroidectomy, postsurgical hypothyroidism presented to ER with complaint of speech changes and strokelike symptoms. Patient states this morning was shopping at [employer] and felt her normal self. Upon returning home around 10 AM patient states started to feel dizzy described as spinning sensation. She states went into the house sat down and drank a bottle of water and stood up and had spinning type dizziness and reports legs felt like they were giving out on her and her vision went black and she fell around 10:45AM. Patient states did not have complete LOC. Denies hitting head or any other injury. Patient states was able to stand up. Had continued dizziness and had another episode of vision going black and falling without complete LOC. States then had onset of anterior central sharp chest pain that was nonradiating. She started having right-sided headache. Reports started having trouble getting her words out and family called EMS. Denies any noted facial drooping. Denies nausea, vomiting, other vision loss, diplopia, blurred vision. Patient states did not eat breakfast today however does not eat breakfast daily. Patient reports history of migraine headache typically gets migraine to left side of head with associated nausea, vomiting, photophobia. 4 days ago had migraine headache, took Relpax. 3 days ago had continued headache and took Tylenol and ibuprofen. Patient reports history intermittent anterior chest pain that typically occurs at rest mostly while watching TV and last 1 to 10 minutes and self resolves. Denies any exertional chest pain or shortness of breath. Donates plasma twice a week, last was two days ago on 09/17/22. Denies fever/chills, diaphoresis, N/V/D/C, neck pain, SOB, orthopnea, palpitations, cough, sore throat, choking, otalgia, rhinorrhea, abdominal pain, paresthesias, extremity e da, rashes, urinary symptoms. Reports LMP 1-1.5 years ago. Upon arrival to ER patient with reported generalized weakness, dysarthria. Patient reports does not remember being in the ambulance, she remembers all the other morning events and being in ER. Since being in ER patient reports has had decreased headache, speech difficulty has resolved and has not had any further speech changes. She states she is feeling much better however just feels "wiped out". Allergies Allergy/AdvReac Type Severity Reaction Status Date / Time No Known Allergies Allergy Verified 09/19/22 15:02 Home Medications Medication Instructions Recorded Confirmed Type acetaminophen 500 mg tablet 1,000 mg PO DAILY PRN Pain 02/11/19 09/19/22 History eletriptan 40 mg tablet 40 mg PO UD PRN Headache 09/19/22 09/19/22 History levothyroxine 112 mcg tablet 112 mcg PO DAILY 09/19/22 09/19/22 History Past Med/Surg History Medical History (Updated 09/19/22 @ 15:08 by Swathi Calixto PA-C) Anxiety and depression Chronic migraine Goiter Post-surgical hypothyroidism Surgical History (Updated 09/19/22 @ 14:54 by Swathi Calixto PA-C) H/O thyroidectomy [address] - [address] [facility] [place] History of endometrial ablation 2005 Family History (Updated 09/19/22 @ 14:55 by Swathi Calixto PA-C) Father Coronary heart disease [place] age 72 Sister Breast cancer, Onset Age: 53 Grandmother (Maternal) Diabetes Social History (Updated 09/19/22 @ 14:56 by Swathi Calixto PA-C) Smoking Status: Never smoker Hx Alcohol Use: Yes Alcohol Intake Frequency: Monthly or Less Hx Substance Use: Yes Prescribed Medications: Marijuana Prescribed Medications Comment: Reports last used several months ago Preferred Language: Swedish Feels Safe at Home: Yes Review of Systems Review of Systems: All systems reviewed & are unremarkable except as noted in HPI & below Physical Exam Physical Exam: General: no distress, WDWN Head: normocephalic, atraumatic Eyes: PERRL, EOM's intact, conjunctiva non-injected, anicteric ENT: normal inspection external ears, nose, mucous membranes mildly dry Neck: supple, trachea midline Lungs: clear, no respiratory distress, no wheezing/rhonchi/rales CV: RRR, no murmur, no pretibial edema Abd: normal BS, soft, non-tender Ext: no cyanosis, no calf tenderness Neuro: A&O x 3, normal affect. visual frey intact. EOMs intact. facial sensation is intact and symmetric, face is strong and symmetric, hearing grossly intact, soft palate elevates symmetrically, no dysarthria, shoulder shrug intact, tongue is midline, normal movement, no fasciculations. Strength 5/5 bilateral upper extremities, 4/5 bilateral lower extremities Skin: warm, dry Results & Data Results & Data ([facility]) Vital Signs (Past 12 Hours) Vital Signs Temp Pulse Pulse Resp BP BP Pulse Ox 09/19/22 13:00 110 H 25 H 94 09/19/22 13:00 146/100 H 09/19/22 12:50 104 H 20 96 09/19/22 12:45 106 H 24 98 09/19/22 12:45 151/100 H 09/19/22 12:40 116 H 29 H 96 09/19/22 12:40 148/102 H 09/19/22 12:37 113 H 14 96 09/19/22 12:36 182/106 H 09/19/22 13:00 91 H 21 146/100 H 96 09/19/22 12:30 09/19/22 12:30 36.8 C 110 H 18 151/100 H 97 O2 Del Method 09/19/22 13:00 09/19/22 13:00 09/19/22 12:50 09/19/22 12:45 09/19/22 12:45 09/19/22 12:40 09/19/22 12:40 09/19/22 12:37 09/19/22 12:36 09/19/22 13:00 Room Air 09/19/22 12:30 Room Air 09/19/22 12:30 Room Air Laboratory Results Short CBC 09/19/22 Range/Units 12:36 WBC 11.29 H (4.8-10.8) K/ul Hgb 13.7 (12.0-16.0) g/dl Hct 39.7 (34.1-44.9) % Plt Count 378 (130-400) K/uL BMP 09/19/22 12:36 Sodium 139 Potassium 3.4 L Chloride 106 Carbon Dioxide 27 BUN 15 Creatinine 1.55 H Glucose 99 Calcium 8.0 L Liver Function 09/19/22 Range/Units 12:36 Total Bilirubin 0.3 (0.2-1.0) mg/dl AST 18 (13-39) U/L ALT 14 (7-52) U/L Alkaline Phosphatase 75 (34-104) U/L Albumin 3.4 (3.4-5.0) gm/dl Urine 09/19/22 Range/Units 13:25 Urine Color Yellow Urine Appearance Clear (Clear) Urine pH 7.5 (4.5-7.5) Ur Specific [place] 1.017 (1.000-1.030) Urine Protein Negative (Negative) Urine Glucose (UA) Negative (Negative) Diagnostic Findings Chest CTA 09/19/22 12:13 CT ANGIOGRAPHY OF THE CHEST DISSECTION PROTOCOL CLINICAL HISTORY: Chest pain. Evaluate for thoracic aortic dissection. COMPARISON STUDY: Chest radiograph June 10, 2016. TECHNIQUE: Before and following the IV administration of Optiray, helical axial images of the chest were obtained. Maximal intensity projections and sagittal and coronal reformats were viewed on an independent 3D workstation. IV contrast was administered without complication. Automated exposure control was utilized for the study. A dose lowering technique was utilized adhering to the principles of ALARA. FINDINGS: The caliber of the thoracic aorta is normal. The thoracic aorta is suboptimally assessed on this exam due to motion artifact. However, there is no intramural hematoma or thoracic aortic dissection. There is no pericardial effusion. Size of the heart is within normal limits. No central or lobar pulmonary emboli are present. Central airways are patent. There is no pneumothorax or pleural effusion. No thoracic lymphadenopathy is present. A 3 mm right middle lobe nodule is unchanged since abdominal CT of June 11, 2016. This is benign. Scattered groundglass opacities within the lungs favor atelectasis. Slight concavity of the superior endplate of T9 is likely chronic. Visualized portions of the upper abdomen are unremarkable. IMPRESSION: 1. No thoracic aortic dissection. 2. No acute intrathoracic findings. ACT 112: Negative or not required by law. Electronically signed by: Leonel Monge M.D. 09/19/2022 1:19 PM Chest X-Ray 09/19/22 12:13 XR chest 1V portable HISTORY: Atypical chest pain. neuro deficit, acute stroke suspected COMPARISON: Chest 06/10/2016. FINDINGS: Small linear scarlike density within the left lung base, unchanged. Otherwise, the lungs are clear. Cardiac silhouette is normal in size. No pleural effusions. No pneumothorax. Mild elevation the right hemidiaphragm. IMPRESSION: No acute process. ACT 112: Negative or not required by law. Electronically signed by: Cole Gurrola M.D. 09/19/2022 12:[address] 09/19/22 12:[address] DOSE: HISTORY: neuro deficit, acute stroke suspected TECHNIQUE: Multiaxial CT images of the head were performed without the use of intravenous contrast. Automated exposure control was utilized for this study. A dose lowering technique was utilized adhering to the principles of ALARA. Comparison: None. Findings: The paranasal sinuses and mastoid air cells are clear. The calvarium and skull base are intact. The ventricles and sulci are within normal limits. There is no mass, hematoma, midline shift, or acute infarct. Impression: No acute intracranial abnormality. ACT 112: Negative or not required by law. Electronically signed by: Cole Gurrola M.D. 09/19/2022 12:40 PM Head CTA 09/19/22 12:13 HEAD & NECK CTA HISTORY: neuro deficit, acute stroke suspected TECHNIQUE: Multiaxial CT images of the head were performed following the intravenous administration of contrast to evaluate the major cerebral vessels. Multiaxial CT images of the neck were also performed following the intravenous administration of contrast to evaluate the major cervical vessels. Maximum intensity projection images were also obtained. A dose lowering technique was utilized adhering to the principles of ALARA. COMPARISON: Head CT 09/19/2022. FINDINGS: There is no mass, hematoma, midline shift, or acute infarct. Visualized intracranial internal carotid arteries, distal vertebral arteries, and basilar artery are widely patent. There is no significant stenosis, occlusion, or aneurysm seen within the bilateral ACAs, MCAs, or food handler. The major dural venous sinuses are patent. The aortic arch and proximal great vessels are widely patent. There is no significant stenosis, occlusion, or dissection identified within the bilateral common carotid, internal carotid, or vertebral arteries. IMPRESSION: 1. No significant stenosis, occlusion, or aneurysm within the [place] of [place]. 2. No significant stenosis, occlusion, or dissection identified within the carotid or vertebral arteries. ACT 112: Negative or not required by law. Electronically signed by: Cole Gurrola M.D. 09/19/2022 12:47 PM Neck CTA 09/19/22 12:13 HEAD & NECK CTA HISTORY: neuro deficit, acute stroke suspected TECHNIQUE: Multiaxial CT images of the head were performed following the intravenous administration of contrast to evaluate the major cerebral vessels. Multiaxial CT images of the neck were also performed following the intravenous administration of contrast to evaluate the major cervical vessels. Maximum intensity projection images were also obtained. A dose lowering technique was utilized adhering to the principles of ALARA. COMPARISON: Head CT 09/19/2022. FINDINGS: There is no mass, hematoma, midline shift, or acute infarct. Visualized intracranial internal carotid arteries, distal vertebral arteries, and basilar artery are widely patent. There is no significant stenosis, occlusion, or aneurysm seen within the bilateral ACAs, MCAs, or food handler. The major dural venous sinuses are patent. The aortic arch and proximal great vessels are widely patent. There is no significant stenosis, occlusion, or dissection identified within the bilateral common carotid, internal carotid, or vertebral arteries. IMPRESSION: 1. No significant stenosis, occlusion, or aneurysm within the [place] of No. 2. No significant stenosis, occlusion, or dissection identified within the carotid or vertebral arteries. ACT 112: Negative or not required by law. Electronically signed by: Cole Gurrola M.D. 09/19/2022 12:47 PM ECG Rate (beats per minute): 109 Rhythm: sinus tachycardia Additional Comments: nonspecific t wave changes Code Status & VTE Plan VTE Prophylaxis Plan VTE Prophylaxis will be ordered: Yes Supervising Physician Co-Signing Physician Notes Attending addendum: The patient was seen and examined in the emergency room 51-year-old white female with history of anxiety, depression, migraine, postsurgical hypothyroidism was brought in with strokelike symptoms and questionable chest pain Her symptoms almost resolved on arrival to the emergency room During examination she did not have any symptoms at all but she complained to have some restless legs which were not there before On examination Lying in bed comfortably She is hemodynamically stable Chest-clear to auscultate bilaterally Heart-S1, S2 regular no murmur Abdomen-benign Extremities-negative for any edema 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 No focal neurodeficit with normal power in all extremities Her admission labs, imaging studies and EKG noted She was evaluated by [facility] neurologist following the stroke alert Will have usual work-up for the stroke For the chest pain that she had we will get serial cardiac enzymes rule out any possibility of ACS Agree with assessment and plan as outlined above by CHRIS Fernandes Dr (1) Headache Headache chronicity pattern: acute headache Headache type: unspecified Intractability: not intractable Qualified Code(s): R51.9 - Headache, unspecified (2) Chest pain Chest pain type: unspecified Qualified Code(s): R07.9 - Chest pain, unspecified
[2022-09-19] MEDS ORDERED: ACETAMINOPHEN 1,000 MG/100 ML VIAL IV STA (14:50)
[2022-09-19] MEDS ORDERED: POTASSIUM CHLORIDE CRTAB 20 MEQ TABCR PO STA (15:08)
[2022-09-19 15:49] LABS: Amphetamines+Metham, Urine Neg (Neg); Barbiturates, Urine Neg (Neg); Benzodiazepine, Urine Neg (Neg); Cocaine, Urine Neg (Neg); MDMA (Ecstacy), Urine Neg (Neg); Methadone, Urine Neg (Neg); Opiate, Urine Neg (Neg); Phencyclidine, Urine Neg (Neg)
--- NOTE | 2022-09-19 18:26 | Magnetic Resonance Report ---
MR brain wo con CLINICAL HISTORY: stroke symptoms TECHNIQUE: Multiplanar and multisequence MR images of the brain were obtained without intravenous con trast. Comparison: Comparison is made to CTA head and neck 09/19/2022 FINDINGS: No abnormal restricted diffusion is identified. The white matter is unremarkable. The ventricular sys tem is normal in appearance. No mass is seen. There is no mass effect or midline shift. There is no e vidence of acute intraparenchymal hemorrhage. No extra axial fluid collections are seen. The corpus c allosum, pituitary gland, and cerebellar tonsils appear grossly unremarkable. Flow voids of the major intracranial arterial vessels are identified. The imaged portions of the para nasal sinuses, mastoid air cells, and orbits are unremarkable. IMPRESSION: No acute abnormalities. ACT 112: Negative or not required by law. Electronically signed by: Chucky Alex M.D. 09/19/2022 6:25 PM
[2022-09-19] MEDS ORDERED: PHARMACIST DISCHARGE MED REC CONSULT PRN (19:56)
[2022-09-19] MEDS ORDERED: POLYETHYLENE (MIRALAX) 17 GM PACK PO PRN (19:56)
[2022-09-19] MEDS ORDERED: MECLIZINE HCL 25 MG TAB PO PRN (19:56)
[2022-09-19] MEDS ORDERED: ACETAMINOPHEN 325 MG TAB PO PRN (19:56)
[2022-09-19] MEDS: SODIUM CHLORIDE 0.9% 1000ML 1,000 ML IV SCH (20:59)
[2022-09-20] MEDS: SODIUM CHLORIDE 0.9% 1000ML 1,000 ML IV SCH (04:57)
[2022-09-20] MEDS ORDERED: LEVOTHYROXINE SODIUM 112 MCG TABLET PO SCH (06:30)
[2022-09-20 06:41] LABS: Basophils # (auto) 0.08 K/uL (0-0.2); Basophils % (auto) 1.1 %; Eosinophils # (auto) 0.25 K/uL (0-0.50); Eosinophils % (auto) 3.5 %; Hematocrit (blood only) 38.6 % (34.1-44.9); Hemoglobin 12.9 g/dl (12.0-16.0); Immature Granulocytes # (auto) 0.02 K/uL (0.00-0.02); Immature Granulocytes % (auto) 0.3 %; Lymphocytes # (auto) 2.51 K/uL (1.2-3.4); Lymphocytes % (auto) 34.7 %; Mean Corpuscular Hemoglobin 30.5 pg (25.0-34.0); Mean Corpuscular Hgb Conc 33.4 g/dL (32.0-36.0); Mean Corpuscular Volume 91.3 fL (80.0-100.0); Mean Platelet Volume 9.7 fL (9.4-12.3); Monocytes # (auto) 0.44 K/uL (0.24-0.82); Monocytes % (auto) 6.1 %; Neutrophils # (auto) 3.94 K/uL (1.4-6.5); Neutrophils % (auto) 54.3 %; Platelet Count 359 K/uL (130-400); RDW Coefficient of Variation 13.2 % (11.5-14.5); RDW Standard Deviation 43.6 fL (36.4-46.3); Red Blood Count 4.23 M/uL (3.93-5.22); White Blood Count 7.24 K/ul (4.8-10.8)
[2022-09-20 07:08] LABS: BUN Creatinine Ratio 14.4 (10-20); Calcium 7.4 mg/dl (8.5-10.1); Chol HDL Ratio 4.9 (0-5); Creatinine Clr Calc Pharmacy 74.9 ml/min; Est GFR (African American) 78.9 ml/min; Est GFR (Non-African American) 68.1 ml/min
--- NOTE | 2022-09-20 07:11 | Electrocardiogram Report ---
Test Reason : Blood Pressure : / mmHG Vent. Rate : 109 BPM Atrial Rate : 109 BPM P-R Int : 162 ms QRS Dur : 072 ms QT Int : 358 ms P-R-T Axes : 031 011 037 degrees QTc Int : 482 ms Sinus tachycardia Low voltage QRS Nonspecific T wave abnormality Prolonged QT Abnormal ECG When compared with ECG of 10-JUN-2016 21:37, Criteria for Septal infarct are no longer Present Confirmed by Saleem Xavier ([id number]) on 09/20/2022 7:11:17 AM Referred By: REFERRED SELF Confirmed By:Saleem Xavier
[2022-09-20 08:02] LABS: Estimated Average Glucose 117 mg/dl; Hemoglobin A1C 5.7 % (4.5-5.6)
[2022-09-20] MEDS ORDERED: ASPIRIN 81 MG ECTAB PO SCH (09:00)
[2022-09-20 09:32] LABS: Thyroid Stimulating Hormone 34.215 uIu/ml (0.300-4.500)
[2022-09-20 10:16] LABS: T4 Free Thyroxine 0.75 ng/dl (0.61-1.60)
--- NOTE | 2022-09-20 11:00 | Electrocardiogram Report ---
Test Reason : Blood Pressure : / mmHG Vent. Rate : 063 BPM Atrial Rate : 063 BPM P-R Int : 158 ms QRS Dur : 070 ms QT Int : 448 ms P-R-T Axes : 016 016 039 degrees QTc Int : 458 ms Normal sinus rhythm Low voltage QRS Nonspecific T wave abnormality When compared with ECG of 19-SEP-2022 12:35, (unconfirmed) Vent. rate has decreased BY 46 BPM QTc has shortened Confirmed by Armando Bowden ([id number]) on 09/20/2022 11:00:21 AM Referred By: REFERRED SELF Confirmed By:Armando Bowden
[2022-09-20] MEDS ORDERED: SUMAtriptan succinate 25 MG TAB PO PRN (12:19)
[2022-09-20] MEDS ORDERED: IBUPROFEN 600 MG TAB PO PRN (12:19)
--- NOTE | 2022-09-20 12:33 | Neurology Consultation ---
Date of Consultation September 20, 2022 Assessment & Plan (1) Pre-syncope: Patient had a couple of episodes of what sounds like near syncope, with some dulling of vision, and controlled fall to the ground. Associated with some vertigo and headache, though she has had the symptoms intermittently before. No focal symptoms reported. There might been some slurring of speech, but it is unclear if that was out of proportion to the presyncopal symptoms. Fully recovered at present. Difficult to explain all of the symptoms by 1 process. Neurologic entities cannot relate due to chest pain as she is describing. MRI brain without significant ischemia. MRA head and neck without flow-limiting stenosis. Awaiting echocardiogram result. If surface echocardiogram is completely normal, would be okay from my end for patient to be discharged with outpatient follow-up. She should still have several weeks of cardiac rhythm monitoring in the outpatient setting. Start on daily aspirin daily and statin. Instructed patient to return immediately for any return of symptoms or any unusual neurologic symptoms. She agrees. Would ensure chest pain has been adequately evaluated. Will defer to primary service. History of Present Illness Reason for Consultation: Episode of visual disruption and fall. Attending Physician: Mirella Stevenson MD History of Present Illness Patient seems to be a good historian. Yesterday she had 2 episodes of partial loss of vision and controlled falls to the ground, though she says she is fairly certain she did not actually lose consciousness. These 2 events were just a couple of minutes apart, and associated with chest pain but no significant shortness of breath. Did have associated headache, but it is common for her to have a headache; this feels a bit different than her baseline headache though. Also associated dizziness, and perhaps some type of disruption of speech noted by family no nonsense speech. No focal weakness or numbness of arms, legs, face. Never had anything like this happen before, but has had prior episodes of vertigo. Has had prior chest pain thought related to anxiety by her report. Feels fully back to normal at present, and family concurs. Allergies Allergy/AdvReac Type Severity Reaction Status Date / Time No Known Allergies Allergy Verified 09/19/22 15:02 Home Medications Medication Instructions Recorded Confirmed Type acetaminophen 500 mg tablet 1,000 mg PO DAILY PRN Pain 02/11/19 09/19/22 History eletriptan 40 mg tablet 40 mg PO UD PRN Headache 09/19/22 09/19/22 History levothyroxine 112 mcg tablet 112 mcg PO DAILY 09/19/22 09/19/22 History Patient History Medical History (Updated 09/20/22 @ 12:30 by Tomas Salcido MD) Anxiety and depression Chronic migraine Goiter Post-surgical hypothyroidism Surgical History (Updated 09/19/22 @ 14:54 by Swathi Calixto PA-C) [place] [facility] [place] of endometrial ablation 2005 Family History (Updated 09/19/22 @ 14:55 by Swathi Calixto PA-C) Father Coronary heart disease [place] age 72 Sister Breast cancer, Onset Age: 53 Grandmother (Maternal) Diabetes Social History (Updated 09/19/22 @ 14:56 by Swathi Calixto PA-C) Smoking Status: Never smoker Second Hand Exposure: Yes; Hx Alcohol Use: Yes Alcohol type: wine Alcohol Intake Frequency: Monthly or Less Hx Substance Use: Yes Prescribed Medications: Marijuana Prescribed Medications Comment: Reports last used several months ago Last Used Substance: Days (ago) Last Used Substance Other:: Used 3 months ago Preferred 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 Results & Data ([facility]) Vital Signs (Past 12 Hours) Vital Signs Temp Pulse Pulse Resp BP BP Pulse Ox 09/20/22 12:05 36.7 C 83 18 134/84 95 09/20/22 08:24 36.8 C 99 H 19 130/79 92 09/20/22 07:34 63 09/20/22 04:00 36.6 C 63 16 98/60 L 96 O2 Del Method 09/20/22 12:05 Room Air 09/20/22 08:24 Room Air 09/20/22 07:34 09/20/22 04:00 Room Air
[2022-09-20] MEDS ORDERED: STROKE PATIENT DISCHARGE STA (14:51)
--- NOTE | 2022-09-20 14:52 | Discharge Summary ---
Discharge Summary Date of Service September 20, 2022 Notes For Next Care Provider PCP to arrange zio patch testing Needs to follow up with neurology Check Thyroid function test in 6-8 weeks Medication Changes From Visit Started on ASA 81mg for possible TIA Started on Atorvastatin for hyperlipidemia Levothyroxine was increased to 125mcg daily Admission HPI Per Admitting Provider Patient is 51-year-old female with PMH anxiety, depression, migraine headache, history of goiter s/p thyroidectomy, postsurgical hypothyroidism presented to ER with complaint of speech changes and strokelike symptoms. Patient states this morning was shopping at [employer] in [place] and felt her normal self. Upon returning home around 10 AM patient states started to feel dizzy described as spinning sensation. She states went into the house sat down and drank a bottle of water and stood up and had spinning type dizziness and reports legs felt like they were giving out on her and her vision went black and she fell around 10:45AM. Patient states did not have complete LOC. Denies hitting head or any other injury. Patient states was able to stand up. Had continued dizziness and had another episode of vision going black and falling without complete LOC. States then had onset of anterior central sharp chest pain that was nonradiating. She started having right-sided headache. Reports started having trouble getting her words out and family called EMS. Denies any noted facial drooping. Denies nausea, vomiting, other vision loss, diplopia, blurred vision. Patient states did not eat breakfast today however does not eat breakfast daily. Patient reports history of migraine headache typically gets migraine to left side of head with associated nausea, vomiting, photophobia. 4 days ago had migraine headache, took Relpax. 3 days ago had continued headache and took Tylenol and ibuprofen. Patient reports history intermittent anterior chest pain that typically occurs at rest mostly while watching TV and last 1 to 10 minutes and self resolves. Denies any exertional chest pain or shortness of breath. Donates plasma twice a week, last was two days ago on 09/17/22. Denies fever/chills, diaphoresis, N/V/D/C, neck pain, SOB, orthopnea, palpitations, cough, sore throat, choking, otalgia, rhinorrhea, abdominal pain, paresthesias, extremity edema, rashes, urinary symptoms. Reports LMP 1-1.5 years ago. Upon arrival to ER patient with reported generalized weakness, dysarthria. Patient reports does not remember being in the ambulance, she remembers all the other morning events and being in ER. Since being in ER patient reports has had decreased headache, speech difficulty has resolved and has not had any further speech changes. She states she is feeling much better however just feels "wiped out". Admission Exam Per Admitting Provider General: no distress, WDWN Head: normocephalic, atraumatic Eyes: PERRL, EOM's intact, conjunctiva non-injected, anicteric ENT: normal inspection external ears, nose, mucous membranes mildly dry Neck: supple, trachea midline Lungs: clear, no respiratory distress, no wheezing/rhonchi/rales CV: RRR, no murmur, no pretibial edema Abd: normal BS, soft, non-tender Ext: no cyanosis, no calf tenderness Neuro: A&O x 3, normal affect. visual frey intact. EOMs intact. facial sensation is intact and symmetric, face is strong and symmetric, hearing grossly intact, soft palate elevates symmetrically, no dysarthria, shoulder shrug intact, tongue is midline, normal movement, no fasciculations. Strength 5/5 bilateral upper extremities, 4/5 bilateral lower extremities Skin: warm, dry Principal Dx & Hospital Course #1 = Principal Diagnosis (1) Stroke-like symptoms: 51-year-old female with PMH anxiety, depression, migraine headache, history of goiter s/p thyroidectomy, postsurgical hypothyroidism presented to ER with complaint of speech changes, Headache, near syncope, dizziness. Dizziness started around 10:00AM and near syncope episode was around 10:45AM. Patient states did not have complete LOC. CT Head: No acute intracranial abnormality. CTA Head and Neck: 1. No significant stenosis, occlusion, or aneurysm within the [place] of No. 2. No significant stenosis, occlusion, or dissection identified within the carotid or vertebral arteries. MRI brain did not show any acute abnormalities Lipid panel showed hyperlipidemia with total cholesterol of 221, TG 159, LDL 144. Hemoglobin A1c was 5.7 TSH was 40. Repeat was 34. fT4 0.74 Patient's symptoms may be near syncope but complex migraine or TIA is possible She was evaluated by Neurology and started on ASA 81mg Started on atorvastatin for hyperlipidemia Review of previous outpatient chart showed patient was on 125mcg levothyroxine which was reduced to 112mcg in november. Based on results today, this was changed back to 125mg daily PCP to check Thyroid function test in 6-8 weeks Need to follow up with neurology outpatient (2) Headache: (3) Chronic migraine: History Chronic Migraine Previously followed with [facility] neurology. Was to consider starting Emgality however never started it (4) Chest pain: Reported anterior central sharp chest pain during episode which quickly resolved My review of EKG was not remarkable for ACS Troponin trend was negative CTA Chest did not show any dissection or acute intrathoracic findings Echocardiogram showed normal LVSF, EF 55-60, mild aortic regurgitation. No evidence of septal defect/PFO Chest pain likely anxiety related (5) Elevated blood pressure reading: Initial BP in ER 151/100. May be related to episode BP is currently normal (6) DALIA (acute kidney injury): Cr: 1.5. Baseline Cr: 1.0 Likely secondary to dehydration Got IVF DALIA is resolved. Cr is 0.97 today (7) Hypokalemia: K: 3.4. Magnesium: 2.1 Replace and monitor (8) Post-surgical hypothyroidism: History goiter s/p thyroidectomy Review of previous outpatient chart showed patient was on 125mcg levothyroxine which was reduced to 112mcg in november. Based on results today, this was changed back to 125mg daily (9) Anxiety and depression: Not currently on medication Was to follow up with psychiatry however has not seen yet Discharge Exam Constitutional + well hydrated; no acute distress Eyes PERRL, conjunctivae normal, anicteric sclerae ENMT external ear and nose normal, oropharynx normal Respiratory normal respiratory effort, lungs clear to auscultation Cardiovascular Rate/Rhythm: regular rate and regular rhythm S1 S2 Gastrointestinal (Abdomen) normal bowel sounds, soft, nontender, no hepatosplenomegaly Musculoskeletal no cyanosis or clubbing, extremities motor strength 5/5 Neurologic PERRL, EOMI, accommodation nl, no face palsy, no dysarthria Psychiatric A+Ox3, euthymic affect Updated Medication List Medication Instructions Recorded Confirmed Type acetaminophen 500 mg tablet 1,000 mg PO DAILY PRN Pain 02/11/19 09/19/22 History eletriptan 40 mg tablet 40 mg PO UD PRN Headache 09/19/22 09/19/22 History aspirin 81 mg tablet,delayed 81 mg PO DAILY #90 tabs 09/20/22 Rx release atorvastatin 40 mg tablet 40 mg PO HS #90 tabs 09/20/22 Rx levothyroxine 125 mcg capsule 125 mcg PO DAILY #60 caps 09/20/22 Rx Hospital Stay Data Consultations 09/19/22 13:22 ED Decision to Admit Stat 09/19/22 19:56 Consult Neurology Routine Diagnostic Imagining Performed 09/19/22 12:13 CT angio chest dissec wo/w con Stat CT angio head w con Stat CT angio neck with con Stat CT head/brain wo con Stat 09/19/22 15:33 MR brain wo con Routine Pending Results Patient Have Any Pending Studies at Discharge: No Discharge Instructions Given to Patient (Per Discharging Provider) Mrs Gu You came to the hospital with symptoms of altered speech, dizziness, blacking out and fall at home. You were extensively evaluated. CT and MRI scans did not show any acute stroke. However, a transient ischemic attack is possible. Evaluation revealed you have elevated cholesterol level and poorly controlled hypothyroidism. You are being discharged on aspirin and atorvastatin. Your levothyroxine was increased to 125mcg daily. Your primary doctor should recheck thyroid function test in 6-8 weeks. You will need to follow up with your Primary Doctor who will arrange a zio patch testing to look for abnormal heart rhythm. Please ensure follow up with neurology. You also had acute kidney injury which is resolved. It was a pleasure taking care of you. Total Time Total Time Spent Total Time Spent (In Minutes): 50 Total Time Includes: Examination of the Patient, Discharge Planning and Medication Reconciliation
== END 2022-09-20 15:37 | disposition home or self-care (01) ==
LOC: ED 12:16 → 2N 12:16 → SUATTDRO 14:21 → 2N 19:39